=== PATIENT | female | born 1945 | race Caucasian/White ===

== ENCOUNTER → 2023-10-08 09:57 | Outpatient (REF) | payer MEDICARE, OTHER, SELFPAY | LOC: PAVMRI 09:57 | PROVIDERS: ATTENDING PHYSICIAN Internal Medicine | DX: R41.3 Other amnesia (principal) | CPT/HCPCS: 70551 ==

== ENCOUNTER → 2023-10-22 18:20 | Outpatient (REF) | payer MEDICARE, OTHER, SELFPAY | LOC: PAVMRI 18:20 | PROVIDERS: ATTENDING PHYSICIAN Internal Medicine | DX: M48.02 Spinal stenosis, cervical region (principal) | CPT/HCPCS: 72141 ==

== ENCOUNTER → 2024-01-17 16:27 | Outpatient (REF) | payer MEDICARE, OTHER, SELFPAY | LOC: PAVMRI 16:27 | PROVIDERS: ATTENDING PHYSICIAN Specialist; FAMILY PHYSICIAN Internal Medicine | DX: I63.312 Cerebral infarction due to thrombosis of left middle cerebral artery (principal); I63.311 Cerebral infarction due to thrombosis of right middle cerebral artery | CPT/HCPCS: 70544; 70547 ==

== ENCOUNTER 2024-03-11 12:33 | Emergency (ER) | payer MEDICARE, OTHER, SELFPAY ==
[2024-03-11 12:39] VITALS: BP 122/65
[2024-03-11 12:43] LABS: Glucose - Point of Care 269 mg/dl (70-99)
[2024-03-11 13:00] LABS: % Basophils 0.4 % (0-2); % Eosinophils 1.1 % (0-6); % Immature Granulocytes 0.2 % (0-0.5); % Monocytes 8.4 % (1.7-9.3); % Neutrophils 67.9 % (42.2-75.2); Absolute Eosinophils 0.1 10^3/uL (0-0.7); Absolute Monocytes 0.8 10^3/uL (0.1-0.6); Absolute Neutrophils 6.2 10^3/uL (1.4-6.5); Hematocrit 34.5 % (37.0-47.0); Hemoglobin 11.4 g/dL (12.0-16.0); Mean Corpuscular Volume 93.8 fL (81.0-99.0); Mean Platelet Volume 10.2 fL (7.4-10.4); Nucleated Red Blood Cells % 0 %; Platelet Count 155 10^3/uL (130-400); Red Blood Cell Count 3.68 10^6/uL (4.20-5.40); Red Cell Dist. Width 12.9 % (11.5-14.5); White Blood Cell Count 9.1 10^3/uL (4.8-10.8)
[2024-03-11 13:25] LABS: ALT (SGPT) 17 U/L (0-35); AST (SGOT) 20 U/L (14-36); Albumin 3.6 g/dl (3.5-5.0); Alkaline Phosphatase 81 U/L (38-126); Blood Urea Nitrogen 32 mg/dl (7-17); Calcium 9.7 mg/dl (8.4-10.2); Carbon Dioxide 30 mmol/L (22-30); Chloride 105 mmol/L (98-107); Glucose 294 mg/dl (70-99); Lipase 60 U/L (23-300); Sodium 138 mmol/L (135-145); Total Bilirubin 0.6 mg/dl (0.2-1.3); Total Protein 6.7 g/dl (6.3-8.2); eGFR 51.75
[2024-03-11 13:33] LABS: Potassium 4.5 mmol/L (3.5-5.1)
--- NOTE | 2024-03-11 13:34 | ED.GENMED ---
History of Present Illness
General
Chief Complaint: Abdominal Pain
Source: patient
Exam Limitations: none
Time Seen by Provider: 03/11/24 12:59
History of Present Illness
History of Present Illness:
79-year-old female primarily here because of abdominal pain. Symptoms started yesterday. Gradual in onset. Patient states it does not really hurt unless she touches it. She does have some anorexia. No fever. She points to her left anterior mid
flank as the location of her symptoms. She denies back pain denies urinary symptoms. Denies fever or chills. Denies vomiting. She did have diarrhea last week 4-5 times per day watery. No blood or mucus. She was on antibiotics at that time for
a nonspecific rash of her chest. Antibiotics were finished as has the diarrhea.
Past History
Past History
ED Past Medical History: HTN and NIDDM
ED Past Surgical History: Appendectomy, Cholecystectomy and Gynecological
Social History
Tobacco: Non-smoker
Alcohol: None
Drug: None
Personal:
Living: with family
Review of Systems
Review of Systems
All Other Systems: Not applicable
Constitutional: Reports other (Anorexia); Denies fever
Respiratory: Reports no symptoms
Cardiac: Reports no symptoms
: Reports no symptoms
Phy Exam
Physical Exam
Physical Exam:
GENERAL: Alert and oriented in no apparent distress
EYE: Orbits normal.
NECK: Supple
CARDIAC: Regular rate and rhythm without any obvious murmurs.
LUNGS: Clear breath sounds,normal. No CVA tenderness
ABDOMEN: Soft, bowel sounds present. No distention. Midline vertical scar. Tenderness greatest in the left lower quadrant. Mild left upper quadrant tenderness. No rebound or guarding no mass or hernia
NEUROLOGICAL: Alert and oriented , grossly non-focal
SKIN: Warm and dry, no rash or lesion, no discoloration, skin intact.
MUSCULOSKELETAL: No edema,no deformity.Good color
PSYCH: Normal and appropriate interaction.
Course
Orders/Labs/Results
Orders:
Orders
03/11/24 12:47
Complete Blood Count/With Diff Urgent
Comprehensive Metabolic Panel Urgent
Lipase Urgent
03/11/24 13:20
IV Insert/Care/Rem.- Treatment PRN
STOOL [C difficile Antigen & Toxins] Urgent
CANDACE Source: Feces/Stool
Specimen Description:
Stool Culture Urgent
CANDACE Source: Feces/Stool
Specimen Description:
0.9% Sodium Chloride 500 ml [Nss] 500 ml IV BOLUS
03/11/24 13:21
CT Abd/Pel (IV only)-DH only Urgent
Comment:
Reason For Exam: llq pain
03/11/24 13:50
Urinalysis Reflex To Culture Urgent
Date Specimen was Collected: 03/11/24
Time Specimen was Collected: 13:23
Urine Microscopic Reflex Cult Urgent
Urine Culture Urgent
CANDACE Source: U
Specimen Description:
Date Specimen was Collected: 03/11/24
Time Specimen was Collected: 13:23
03/11/24 17:15
MetroNIDAZOLE [Flagyl] 500 mg PO NOW STA
03/11/24 17:15
Ciprofloxacin HCl [Cipro] 500 mg PO NOW STA
Abnormal Lab Results
03/11/24 03/11/24 03/11/24
12:42 12:47 13:50
RBC 3.68 L 10^6/uL
(4.20-5.40)
Hgb 11.4 L g/dL
(12.0-16.0)
Hct 34.5 L %
(37.0-47.0)
Absolute Monos (auto) 0.8 H 10^3/uL
(0.1-0.6)
BUN 32 H mg/dl
(7-17)
Creatinine 1.1 H mg/dL
(0.6-1.0)
Glucose 294 H mg/dl
(70-99)
Urine Bilirubin 1+ A
(Negative)
Urine Urobilinogen 2+ A
(Neg - 1+)
Leukocyte Esterase Rfl 2+ A
(Negative)
Urine WBC (Reflex) 16-20 A /HPF
(0-5)
Urine Bacteria (Reflex) Moderate A
(Negative)
Urine Glucose Trace A
(Negative)
POC Glucose 269 H mg/dl
(70-99)
03/11/24 12:47
03/11/24 12:47
Vital Signs
Initial and Last Documented VS:
Initial Vital Signs
Temp Pulse Resp BP Pulse Ox
99.4 F 83 18 122/65 98
03/11/24 12:39 03/11/24 12:39 03/11/24 12:39 03/11/24 12:39 03/11/24 12:39
Last Documented Vital Signs
Temp Pulse Resp BP Pulse Ox
99.4 F 74 17 136/68 96
03/11/24 12:39 03/11/24 17:08 03/11/24 17:08 03/11/24 17:08 03/11/24 17:08
MDM/Problems Addressed
Differential Diagnosis Includes:
79-year-old female complaining of abdominal pain gradual in onset since yesterday. Had recent antibiotic use. Differential would include diverticulitis, colitis, C. difficile colitis, nonspecific abdominal pain. Workup includes labs CT scan stool
culture for culture and C. difficile.
*Pulse Oximetry
Patient hypoxic: no
*Critical Care Note
Total Time (30-74mins, 75-104mins- exclusive of procedures): Not Applicable
Data Reviewed
Review of Other/Old Records Reveals: Labs, Records and Other (Colonoscopy report)
Update Note
Update Note:
Patient with mild diverticulitis by CT. Medically stable. Reasonable for outpatient management. Patient is comfortable with this approach.
ED Attending Note
-
Portions of this chart may have been created with voice recognition software.� Occasional wrong word or��sound alike� substitutions may have occurred due to the inherent limitations of voice recognition software.
Discharge Plan
Departure
Patient Disposition: Home (Routine Discharge)
Date of Disposition: 03/11/24
Time of Disposition: 17:17
Patient with high blood pressure during this ER visit?: Yes
Discharge Problem:
Diverticulitis
Instructions: Diverticulitis (DC), BLOOD PRESSURE
Prescriptions:
New
ciprofloxacin HCl 500 mg tablet
500 mg PO BID Qty: 14 0RF
metronidazole 500 mg tablet
500 mg PO TID Qty: 21 0RF
No Action
Calcium With D Mg
1 PO DAILY
Lantus Vial
38 units HS
Multivitamin Mg
1 PO DAILY
atorvastatin 10 MG tablet
10 mg PO QPM
enalapril maleate [Vasotec] 20 MG tablet
20 mg PO BID
aspirin 81 MG tablet,delayed release (DR/EC)
81 mg PO DAILY
exenatide [Byetta] 10 MCG/0.04 ML pen injector
10 mcg SQ BID
Patanol Ophthalmic Solution
2 drp BOTH EYES BID
Plendil Mg
10 mg PO DAILY
Prandin
1 mg PO BID
Proventil
2 inhaler PRN (Reason: difficulty breathing)
polyethylene glycol 3350 17 GRAMS powder in packet
17 grams PO WEEKLY
Patient Comments:
2x week
sertraline 100 MG tablet
100 mg PO DAILY
montelukast 10 MG tablet
10 mg PO QPM
Referrals:
Anuradha Riley NP [Family Provider] - Follow up in 2-3 days
Activity Restrictions/Additional Instructions:
Your prescriptions were sent to your pharmacy
Return with increasing pain fever vomiting or if symptoms or not significantly improved in 2 to 3 days
Interventions
Interventions:
*Risk Screen - Suicide Last Done: 03/11/24 12:39
*General Assessment Last Done: 03/11/24 12:39
*Neglect/Abuse Screening Last Done: 03/11/24 12:39
*ED COVID-19 Vaccine History Last Done: 03/11/24 13:49
CR-Plreue-Knhshzhyva Assessment Last Done: 03/11/24 13:49
Discharge Date and Time
Print Language: [place]
[2024-03-11 13:50] VITALS: BP 132/88
[2024-03-11] MEDS: NSS 500 IV (13:55)
[2024-03-11 14:38] LABS: Urine Albumin Trace (Neg - Trace); Urine Bilirubin 1+ (Negative); Urine Color Yellow; Urine Glucose Trace (Negative); Urine Ketone Negative (Negative); Urine Leukocyte 2+ (Negative); Urine Nitrite Negative (Negative); Urine Occult Blood Negative (Negative); Urine Urobilinogen 2+ (Neg - 1+)
[2024-03-11 14:41] LABS: Urine Character Slightly Cloudy (Clear)
[2024-03-11 15:16] LABS: Urine Amorphous Seen; Urine Mucus Many; Urine Squamous Cell >30 /LPF (Few)
[2024-03-11 15:18] LABS: Urine Bacteria Moderate (Negative); Urine Red Blood Cell 0-2 /HPF (0-2); Urine White Cell 16-20 /HPF (0-5)
[2024-03-11 17:08] VITALS: BP 136/68
[2024-03-11] MEDS: FLAGYL 500 MG PO (17:27)
[2024-03-11] MEDS: CIPRO 500 MG PO (17:27)
== END 2024-03-11 18:01 | disposition home or self-care (01) ==
LOC: EMR 12:33
PROVIDERS: Student in an Organized Health Care Education/Training Program; EMERGENCY PHYSICIAN Emergency Medicine; FAMILY PHYSICIAN Internal Medicine
DX: K57.92 Diverticulitis of intestine, part unspecified, without perforation or abscess without bleeding (principal); R63.0 Anorexia; E11.9 Type 2 diabetes mellitus without complications; I10 Essential (primary) hypertension; Z90.49 Acquired absence of other specified parts of digestive tract; Z79.82 Long term (current) use of aspirin; Z91.048 Other nonmedicinal substance allergy status
CPT/HCPCS: 99284; 96361 ×3; 96360; 74177; 80053; 81003; 81015; 82962; 83690; 85025; 87077; 87086; Q9967

== ENCOUNTER → 2024-04-29 14:50 | Outpatient (REF) | payer MEDICARE, OTHER, SELFPAY | LOC: RCS 14:50 | PROVIDERS: ATTENDING PHYSICIAN Internal Medicine Cardiovascular Disease; FAMILY PHYSICIAN Internal Medicine | DX: I63.9 Cerebral infarction, unspecified (principal) | CPT/HCPCS: 93306 ==

== ENCOUNTER 2024-05-05 17:00 | Emergency (ER) | payer MEDICARE, OTHER, SELFPAY ==
[2024-05-05 17:08] VITALS: BP 163/83
[2024-05-05 18:06] VITALS: BMI 39.4
--- NOTE | 2024-05-05 19:38 | ED.MUSCINJ ---
HPI-Injury
General
Chief Complaint: Fall
Source: patient
Exam Limitations: none
Time Seen by Provider: 05/05/24 18:56
Nursing documentation reviewed up to this point in time: agreed with
History of Present Illness-Injury
Is this injury a work related problem?: No
Initial Injury comments:
Patient states she was standing on a step stool and fell off. Hit forehead on floor. No loc. Complains of pain to left wrist. Injury occurred tonight. Brought to ED by spouse for evl.
Past History
Past History
ED Past Medical History: HTN and NIDDM
ED Past Surgical History: Appendectomy, Cholecystectomy and Gynecological
Social History
Tobacco: Non-smoker
Alcohol: None
Drug: None
Personal:
Living: with family
Review of Systems
Review of Systems
Allergies reviewed?: Yes
All Other Systems: ROS reviewed and negative except as documented in HPI and ROS
Constitutional: Reports no symptoms
EENT: Reports no symptoms
Respiratory: Reports no symptoms
Cardiac: Reports no symptoms
ABD/GI: Reports no symptoms
: Reports no symptoms
Musculoskeletal: Reports joint pain (Pain to left wrist)
Skin: Reports no symptoms
Neurological: Reports no symptoms (Denies mckeon, dizziness)
Psychiatric: Reports no symptoms
Musculoskeletal Injury Exam
Musculoskeletal Injury Exam
Left Wrist:
Pain with Movement?: Moderate
Tender to palpation?: Moderate
Soft tissue swelling?: Mild
External deformity and angulation?: None
Joint effusion?: None
Contusion?: Moderate
Hematoma-local bleeding into tissue?: None
Strain- Sprain- Tear (Connective tissue injury)?: Moderate
Crepitus with movement?: No
Joint instability?: No
Malalignment/deformity?: No
Range of motion: Limited
Distal skin color and temperature: normal-warm & good color
Capillary Refill: normal
Normal distal neurovascular exam?: Yes
Peripheral Pulses: radial (left): 3+
Phy Exam
General Physical Exam
General Presentation: well appearing and no apparent distress
General age: appears stated age
General Skin: warm and dry
General Habitus: normal
General Mental: alert
Eye Exam
Eye Exam: PERRL, EOMI, conjunctiva normal and globe normal
Neurological Exam
Neurological Exam: alert, oriented x3, CN II-XII intact, no motor deficits, no sensory deficits and speech normal
Musculoskeletal Exam
Musculoskeletal Exam: neuro vasc intact
Skin Exam
Skin Exam: normal color, warm/dry and no rash
Psychiatric Exam
Psychiatric Exam: normal mood/affect
Injury Course
Orders/Labs/Results
Orders:
Orders
05/05/24 17:01
Wrist, Left 3 Views CR [CR Wrist - Left Min 3 Views] Urgent
Comment:
Reason For Exam: fall/pain
05/05/24 19:16
Sling Left-Treatment ONCE
Volar Left-Treatment ONCE
*Radiology
Radiology exam reviewed: radiology read reviewed
*Pulse Oximetry
Patient hypoxic: no
*Critical Care Note
Total Time (30-74mins, 75-104mins- exclusive of procedures): Not Applicable
Update Note
Update Note:
Patient to ED s/p fall. hit forhead on floor. No LOC. She denies MCKEON, dizziness, vision changes. Denies any neck or back pain. No blood thinner use. Neurologically intact. Will hold off on CT at this time. She is discharged home and will
follow up with ortho. Given instructions on s/s to return to ED and she is agreeable to plan
ED Attending Note
-
Portions of this chart may have been created with voice recognition software.� Occasional wrong word or��sound alike� substitutions may have occurred due to the inherent limitations of voice recognition software.
Discharge Plan
Departure
Patient Disposition: Home (Routine Discharge)
Date of Disposition: 05/05/24
Time of Disposition: 19:17
Patient with high blood pressure during this ER visit?: No
Condition: Good
Covid-19: Not Applicable
Discharge Problem:
Fracture of wrist
Instructions: Head Injury in Adults (DC), Preventing falls in adults, How to Use a Shoulder Sling, Using Cold for Pain, How to care for a splint, Wrist fracture
Prescriptions:
No Action
Calcium With D Mg
1 PO DAILY
Lantus Vial
38 units HS
Multivitamin Mg
1 PO DAILY
atorvastatin 10 MG tablet
10 mg PO QPM
enalapril maleate [Vasotec] 20 MG tablet
20 mg PO BID
aspirin 81 MG tablet,delayed release (DR/EC)
81 mg PO DAILY
exenatide [Byetta] 10 MCG/0.04 ML pen injector
10 mcg SQ BID
Patanol Ophthalmic Solution
2 drp BOTH EYES BID
Plendil Mg
10 mg PO DAILY
Prandin
1 mg PO BID
Proventil
2 inhaler PRN (Reason: difficulty breathing)
polyethylene glycol 3350 17 GRAMS powder in packet
17 grams PO WEEKLY
Patient Comments:
2x week
sertraline 100 MG tablet
100 mg PO DAILY
montelukast 10 MG tablet
10 mg PO QPM
ciprofloxacin HCl 500 mg tablet
500 mg PO BID Qty: 14 0RF
metronidazole 500 mg tablet
500 mg PO TID Qty: 21 0RF
Referrals:
Ceasar An MD [Active] - Call in 1-3 days for appt
Interventions
Interventions:
*Risk Screen - Suicide Last Done: 05/05/24 17:08
*General Assessment Last Done: 05/05/24 17:08
*Neglect/Abuse Screening Last Done: 05/05/24 17:08
ED- Fall Risk Assessment Last Done: 05/05/24 18:05
*ED COVID-19 Vaccine History Last Done: 05/05/24 17:08
*Nursing Disposition Last Done: 05/05/24 19:42
ED-Musculoskeletal Assessment Last Done: 05/05/24 18:06
ED- Neurological Assessment Last Done: 05/05/24 18:06
ED-Skin Assessment Last Done: 05/05/24 18:06
Discharge Date and Time
Print Language: YORUBA
== END 2024-05-05 19:42 | disposition home or self-care (01) ==
LOC: EMR 17:00
PROVIDERS: EMERGENCY PHYSICIAN Emergency Medicine; FAMILY PHYSICIAN Internal Medicine
DX: S62.102A Fracture of unspecified carpal bone, left wrist, initial encounter for closed fracture (principal); S60.212A Contusion of left wrist, initial encounter; S09.90XA Unspecified injury of head, initial encounter; W08.XXXA Fall from other furniture, initial encounter; E11.9 Type 2 diabetes mellitus without complications; I10 Essential (primary) hypertension; Z90.49 Acquired absence of other specified parts of digestive tract; E78.5 Hyperlipidemia, unspecified; J45.909 Unspecified asthma, uncomplicated; F32.A Depression, unspecified
CPT/HCPCS: 99283; 29125; 73110

== ENCOUNTER → 2024-08-13 13:30 | Outpatient (REF) | payer MEDICARE, OTHER, SELFPAY | LOC: WDC 13:30 | PROVIDERS: ATTENDING PHYSICIAN Internal Medicine | DX: Z12.31 Encounter for screening mammogram for malignant neoplasm of breast (principal) | CPT/HCPCS: 77063; 77067 ==

== ENCOUNTER 2024-08-17 06:23 | Day surgery (SDC) | payer MEDICARE, OTHER, SELFPAY ==
[2024-08-17 07:15] LABS: Glucose - Point of Care 91 mg/dl (70-99)
== END 2024-08-17 09:37 | disposition home or self-care (01) ==
LOC: GI 06:23
PROVIDERS: ATTENDING PHYSICIAN Internal Medicine Gastroenterology
DX: Z12.11 Encounter for screening for malignant neoplasm of colon (principal); D12.0 Benign neoplasm of cecum; D12.2 Benign neoplasm of ascending colon; D12.3 Benign neoplasm of transverse colon; D12.4 Benign neoplasm of descending colon; K57.30 Diverticulosis of large intestine without perforation or abscess without bleeding; R19.7 Diarrhea, unspecified; Z86.0101 Personal history of adenomatous and serrated colon polyps; K64.8 Other hemorrhoids
CPT/HCPCS: 45385; 45380; 88305; 82962

== ENCOUNTER → 2024-08-20 09:22 | Outpatient (REF) | payer MEDICARE, OTHER, SELFPAY | LOC: WDC 09:22 | PROVIDERS: ATTENDING PHYSICIAN Internal Medicine | DX: R92.8 Other abnormal and inconclusive findings on diagnostic imaging of breast (principal) | CPT/HCPCS: 76642 ==

== ENCOUNTER → 2024-09-08 17:13 | Outpatient (REF) | payer MEDICARE, OTHER, SELFPAY | LOC: MRI 3T 17:13 | PROVIDERS: ATTENDING PHYSICIAN Internal Medicine Gastroenterology; FAMILY PHYSICIAN Internal Medicine | DX: K86.2 Cyst of pancreas (principal) | CPT/HCPCS: 74183; A9575 ==

== ENCOUNTER 2025-01-11 21:55 | Emergency (ER) | payer MEDICARE, OTHER, SELFPAY ==
[2025-01-11 21:57] VITALS: BP 121/64
[2025-01-11 22:11] LABS: Glucose - Point of Care 62 mg/dl (70-99)
[2025-01-11 22:32] LABS: % Basophils 0.5 % (0-2); % Eosinophils 2.3 % (0-6); % Immature Granulocytes 0.3 % (0-0.5); % Lymphocytes 49.4 % (20.5-51.1); % Monocytes 11.6 % (1.7-9.3); % Neutrophils 35.9 % (42.2-75.2); Absolute Eosinophils 0.2 10^3/uL (0-0.7); Absolute Lymphocytes 4.3 10^3/uL (1.2-3.4); Absolute Neutrophils 3.2 10^3/uL (1.4-6.5); Hematocrit 38.7 % (37.0-47.0); Hemoglobin 12.8 g/dL (12.0-16.0); Mean Corp Hgb Conc. 33.1 g/dL (33.0-37.0); Mean Corpuscular Hgb 30.5 pg (27.0-31.0); Mean Corpuscular Volume 92.1 fL (81.0-99.0); Mean Platelet Volume 9.7 fL (7.4-10.4); Nucleated Red Blood Cells % 0 %; Platelet Count 212 10^3/uL (130-400); Red Cell Dist. Width 14.2 % (11.5-14.5); White Blood Cell Count 8.8 10^3/uL (4.8-10.8)
[2025-01-11 22:49] LABS: ALT (SGPT) 19 U/L (0-35); AST (SGOT) 22 U/L (14-36); Albumin 4.1 g/dl (3.5-5.0); Alkaline Phosphatase 88 U/L (38-126); Blood Urea Nitrogen 25 mg/dl (7-17); Calcium 9.7 mg/dl (8.4-10.2); Carbon Dioxide 25 mmol/L (22-30); Chloride 112 mmol/L (98-107); Estimated Creatinine Clearance 48 ml/min; Glucose 55 mg/dl (70-99); Potassium 3.7 mmol/L (3.5-5.1); Sodium 147 mmol/L (135-145); Total Bilirubin 0.6 mg/dl (0.2-1.3); Total Protein 7.7 g/dl (6.3-8.2); eGFR 58.02
[2025-01-11 22:57] LABS: Glucose - Point of Care 139 mg/dl (70-99)
[2025-01-11 23:00] VITALS: BMI 40.8
[2025-01-12 00:15] LABS: Glucose - Point of Care 203 mg/dl (70-99)
--- NOTE | 2025-01-12 00:46 | ED.GENMED ---
History of Present Illness
General
Chief Complaint: Blood Sugar Problem
Source: patient
Exam Limitations: none
Time Seen by Provider: 01/11/25 22:54
Nursing documentation reviewed up to this point in time: agreed with
History of Present Illness
History of Present Illness:
Patient with history of insulin-dependent diabetes, presents to ED secondary to recurrent low blood sugar noted at home, associated with sensation of weakness and fatigue, which she has felt frequently over the past 2 months, associated with low
blood sugar. Patient has spoken with her credit and collections representative and has had her medication adjusted. Otherwise, patient has no other complaints. This evening, specifically, patient due to lack of appetite, reports only having had salad without any
protein. In addition, patient currently is under heavy stress, as she is in the midst of selling her house and moving into temporary housing. Patient denies chest pain, coughing, palpitations, dizziness, vomiting, or diarrhea. Denies recent
travel. Denies sick contact.
Past History
Past History
ED Past Medical History: HTN and NIDDM
ED Past Surgical History: Appendectomy, Cholecystectomy and Gynecological
Social History
Tobacco: Non-smoker
Alcohol: None
Drug: None
Personal:
Living: with family
Review of Systems
Review of Systems
Allergies reviewed?: Yes
All Other Systems: ROS reviewed and negative except as documented in HPI and ROS
Constitutional: Reports no symptoms; Denies fever
Respiratory: Reports no symptoms
Cardiac: Reports no symptoms
ABD/GI: Reports no symptoms
Musculoskeletal: Reports no symptoms
Skin: Reports no symptoms
Neurological: Reports weakness
Phy Exam
Physical Exam
Physical Exam:
Physical Exam
General: no apparent distress, not acutely ill. afebrile
Head: nc/at. eomi
Neck: supple. no meningeal signs.
Heart: s1/s2 regular rate and rhythm
Lungs: no acute respiratory distress. clear bilaterally
Abdomen: normal bowel sounds. not tender.
Neuro: alert and oriented x 3. no focal neurological deficits
Skin: no rash
Psychiatric: well kept. interactive and cooperative
Extremities: no edema. no calf tenderness.
Course
Orders/Labs/Results
Orders:
Orders
01/11/25 22:19
CMP [Comprehensive Metabolic Panel] Urgent
Complete Blood Count/With Diff Urgent
Abnormal Lab Results
01/11/25 01/11/25 01/11/25
22:07 22:19 22:55
Absolute Lymphs (auto) 4.3 H 10^3/uL
(1.2-3.4)
Absolute Monos (auto) 1.0 H 10^3/uL
(0.1-0.6)
Neutrophils % 35.9 L %
(42.2-75.2)
Monocytes % 11.6 H %
(1.7-9.3)
Sodium 147 H mmol/L
(135-145)
Chloride 112 H mmol/L
(98-107)
BUN 25 H mg/dl
(7-17)
Glucose 55 L* mg/dl
(70-99)
POC Glucose 62 L mg/dl 139 H mg/dl
(70-99) (70-99)
01/12/25
00:13
Absolute Lymphs (auto)
Absolute Monos (auto)
Neutrophils %
Monocytes %
Sodium
Chloride
BUN
Glucose
POC Glucose 203 H mg/dl
(70-99)
01/11/25 22:19
01/11/25 22:19
Vital Signs
Initial and Last Documented VS:
Initial Vital Signs
Temp Pulse Resp BP Pulse Ox
97.5 F 88 17 121/64 96
01/11/25 21:57 01/11/25 21:57 01/11/25 21:57 01/11/25 21:57 01/11/25 21:57
Last Documented Vital Signs
Temp Pulse Resp BP Pulse Ox
97.5 F 88 17 121/64 96
01/11/25 21:57 01/11/25 21:57 01/11/25 21:57 01/11/25 21:57 01/11/25 23:02
MDM/Problems Addressed
MDM/Problems Addressed:
Blood sugar remained stable during observation ED, after having had a meal. Patient feels comfortable going home at this time, to the care of her . Patient will contact her credit and collections representative in the morning to discuss potentially modifying her
medications.
*Critical Care Note
Total Time (30-74mins, 75-104mins- exclusive of procedures): Not Applicable
ED Attending Note
-
Portions of this chart may have been created with voice recognition software.� Occasional wrong word or��sound alike� substitutions may have occurred due to the inherent limitations of voice recognition software.
Discharge Plan
Departure
Patient Disposition: Home (Routine Discharge)
Date of Disposition: 01/12/25
Time of Disposition: 00:47
Patient with high blood pressure during this ER visit?: Yes
Condition: Fair
Discharge Problem:
Hypoglycemia
Instructions: Low blood sugar in adults - ED discharge instructions
Prescriptions:
No Action
Calcium With D Mg
1 PO DAILY
Lantus Vial
38 units HS
Multivitamin Mg
1 PO DAILY
atorvastatin 10 MG tablet
10 mg PO QPM
enalapril maleate [Vasotec] 20 MG tablet
20 mg PO BID
aspirin 81 MG tablet,delayed release (DR/EC)
81 mg PO DAILY
exenatide [Byetta] 10 MCG/0.04 ML pen injector
10 mcg SQ BID
Patanol Ophthalmic Solution
2 drp BOTH EYES BID
Plendil Mg
10 mg PO DAILY
Prandin
1 mg PO BID
Proventil
2 inhaler PRN (Reason: difficulty breathing)
polyethylene glycol 3350 17 GRAMS powder in packet
17 grams PO WEEKLY
Patient Comments:
2x week
sertraline 100 MG tablet
100 mg PO DAILY
montelukast 10 MG tablet
10 mg PO QPM
ciprofloxacin HCl 500 mg tablet
500 mg PO BID Qty: 14 0RF
metronidazole 500 mg tablet
500 mg PO TID Qty: 21 0RF
Referrals:
Anuradha Riley NP [Family Provider, Internal Medicine]
Activity Restrictions/Additional Instructions:
As discussed, please follow-up with your primary care physician and/or credit and collections representative for further evaluation and treatment.
Interventions
Interventions:
*Risk Screen - Suicide Last Done: 01/11/25 22:05
*General Assessment Last Done: 01/11/25 22:05
*Neglect/Abuse Screening Last Done: 01/11/25 22:05
*ED- Fall Risk Assessment Last Done: 01/11/25 22:05
*ED COVID-19 Vaccine History Last Done: 01/11/25 22:05
*Nursing Disposition Last Done: 01/12/25 01:10
ED- Neurological Assessment Last Done: 01/11/25 22:05
Discharge Date and Time
Discharge Date/Time: 01/12/25 01:17
Print Language: MAURITIAN
== END 2025-01-12 01:17 | disposition home or self-care (01) ==
LOC: EMR 21:55
PROVIDERS: Emergency Medicine; EMERGENCY PHYSICIAN Emergency Medicine; FAMILY PHYSICIAN Internal Medicine
DX: E11.649 Type 2 diabetes mellitus with hypoglycemia without coma (principal); I10 Essential (primary) hypertension; Z79.4 Long term (current) use of insulin; Z59.01 Sheltered homelessness
CPT/HCPCS: 99283; 80053; 82962; 85025